=== PATIENT | female | born 1970 | race Hispanic/Latino ===

== ENCOUNTER 2017-10-05 07:50 | Emergency (ER) | payer OTHER ==
[~2017-10-05] VITALS: Ht 157.5 cm; Wt 84.0 kg
[~2017-10-05 07:50] MED LIST: ACETTAB3 OR; ADVAIR DISK1; ADVAIR DISK1 INH; ADVAIR DISK2 IN; ALBUTEROL2.5 MG/3 M IN; AMOXICILLIN/CL875 MG PO; AMOXICILLIN500 MG OR; AUGMENTIN875 MG PO; AUGMENTIN875TAB OR; CEPHALEXIN500 MG PO; CIPRO500 MG OR; CIPROFLOXACN250 MG PO; CIPROFLOXACN500 MG PO; COMBIVENT IN; COMBIVENT RESPIMAT IN; DEPO-PROVER150 MG/ML IM; FIORICET PO; FLAGYL500 MG PO; FLEXERIL OR; FLEXERIL PO; FLEXERIL5 M1 PO; HYDROCHLORO25 MG/TAB PO; HYDROCHLOROTH12.5 MG OR; HYDROCHLOROTH12.5 MG PO; LEVAQUIN750 MG PO; LISINOPRIL20 M1 OR; LISINOPRIL20 MG PO; LISINOPRIL40 MG PO; LORTAB 1010 MG PO; LORTAB 5 OR; LORTAB 5/3255 MG PO; LORTAB 7.5 PO; LORTAB5 OR; LORTAB5 PO; LOSARTAN POT50 MG PO; LYRICA150 MG PO; LYRICA50 MG PO; MEDDOSEPAK PO; MOTRIN800 MG PO; NAPROSYN500 MG PO; NORCO1 TA1 PO; OMEPRAZOLE20 M1 PO; OMEPRAZOLE20 M2 PO; OMEPRAZOLE20 MG OR; OMEPRAZOLE20 MG PO; OMEPRAZOLE40 MG PO; OMNICEF300 MG OR; ONDANSETRON4 MG OR; ORTHO TRI-CY OR; PRILOSEC40 MG PO; PROAIR HFA IN; PYRIDIUM200 MG PO; SINGULAIR PO; SINGULAIR10 MG OR; SINGULAIR10 MG PO; SPRINTEC 2828 DAY PO; TRAMADOL HCL50 MG PO; ULTRAM50 M1 PO; XANAX0.5 MG PO; XANAX1 MG PO; [UNRECOGNIZED DRUG - REMARK]
[2017-10-05 08:30] LABS: HEMATOCRIT 39.8 % (37.0-47.0); HEMOGLOBIN 13.2 g/dl (12.0-16.0); IMMATURE GRANULOCYTES 0.3 % (0.0-1.0); MEAN CELL VOLUME 86.7 fL CALC (80.0-100.0); MEAN CORPUSCULAR HGB 28.8 pG CALC (26.0-32.0); MEAN CORPUSCULAR HGB CONC 33.2 g/L CALC (32.0-36.0); NEUT# 4.86 thou/uL (2.00-7.15); RED BLOOD COUNT 4.59 mill/uL (4.20-5.60); RED CELL DISTRI WIDTH 16.6 % (11.5-15.5)
[2017-10-05 08:31] LABS: URINE BILIRUBIN - DIPSTICK NEGATIVE (NEGATIVE); URINE BLOOD DIPSTICK MODERATE (NEGATIVE); URINE COLOR YELLOW; URINE GLUCOSE - DIPSTICK NEGATIVE (NEGATIVE); URINE KETONE NEGATIVE (NEGATIVE); URINE LEUK ESTERASE NEGATIVE (NEGATIVE); URINE NITRITE - DIPSTICK NEGATIVE (Negative); URINE PROTEIN - DIPSTICK NEGATIVE (NEG-TRACE); URINE SPECIFIC GRAVITY >=1.030; URINE UROBILINOGEN - DIPSTICK 0.2 E.U./dL (0.2)
[2017-10-05 08:32] LABS: URINE CLARITY HAZY
[2017-10-05 08:46] LABS: URINE MUCUS MODERATE hpf (NONE-FEW); URINE SQUAMOUS EPITHELIAL CELL MODERATE EPI/hpf (0-FEW); URINE WBC 0-2 WBC/hpf (0-5)
[2017-10-05] MEDS ORDERED: LOSARTAN POT50 MG PO (09:11)
[2017-10-05] MEDS ORDERED: ATROVENT H17 MCG/ACT IN (09:11)
[2017-10-05] MEDS ORDERED: ADVAIR DISK1 IN (09:12)
[2017-10-05 09:41] LABS: ALBUMIN 3.9 g/dL (3.2-5.0); ALKALINE PHOSPHATASE 55 u/l (38-126); AMYLASE 67 u/l (30-110); ANION GAP 14 (6-22 (CALC)); BILIRUBIN, TOTAL 0.3 mg/dL (0.0-1.4); BUN 10 mg/dL (7-17); BUN/CREATININE RATIO 16 (12-20 (CALC)); CALCIUM 9.4 mg/dL (8.4-10.2); CARBON DIOXIDE 22 mmol/l (22-30); CHLORIDE 107 mmol/l (95-108); CREATININE 0.6 mg/dL (0.5-1.0); GFR > 60 ML/MIN (>=60 (CALC)); GFR FOR AFR.AMER. > 60 ML/MIN (>=60 (CALC)); GLUCOSE 93 mg/dL (65-105); LIPASE 61 u/l (23-300); SGOT/AST 20 u/l (14-36); SGPT/ALT 23 u/l (9-52); SODIUM 139 mmol/l (137-146); TOTAL PROTEIN 6.3 g/dL (6.3-8.2)
[2017-10-05 09:53] LABS: MYOGLOBIN 23 ng/mL (0 - 62)
[2017-10-05] MEDS ORDERED: NEXIUM40 M1 PO (12:44)
[2017-10-05] MEDS ORDERED: ZOFRAN ODT4 MG PO (12:44)
[2017-10-05 12:55] VITALS: BP 126/67
== END 2017-10-05 13:00 | disposition home or self-care (01) | DRG 392 ==
LOC: ED 07:50
PROVIDERS: Emergency Medicine
DX: R10.11 Right upper quadrant pain (principal); R10.31 Right lower quadrant pain; R94.31 Abnormal electrocardiogram [ECG] [EKG]

== ENCOUNTER 2019-07-05 07:11 | Emergency (ER) | payer BC ==
[~2019-07-05] VITALS: Ht 157.5 cm; Wt 83.0 kg
[~2019-07-05 07:11] MED LIST changes: +ADVAIR DISK1 IN; +ATROVENT H17 MCG/ACT IN; +NEXIUM40 M1 PO; +ZOFRAN ODT4 MG PO
[2019-07-05 08:20] LABS: HEMATOCRIT 37.5 % (37.0-47.0); HEMOGLOBIN 12.4 g/dl (12.0-16.0); IMMATURE GRANULOCYTES 0.4 % (0.0-5.0); MEAN CELL VOLUME 89.9 fL CALC (80.0-100.0); MEAN CORPUSCULAR HGB 29.7 pG CALC (26.0-32.0); MEAN CORPUSCULAR HGB CONC 33.1 g/L CALC (32.0-36.0); RED BLOOD COUNT 4.17 mill/uL (4.20-5.60); RED CELL DISTRI WIDTH 15.6 % (11.5-15.5)
[2019-07-05 08:37] LABS: ALBUMIN 4.2 g/dL (3.2-5.0); ALKALINE PHOSPHATASE 52 u/l (38-126); ANION GAP 14 (6-22 (CALC)); BILIRUBIN, TOTAL 0.4 mg/dL (0.0-1.4); BUN 13 mg/dL (7-17); BUN/CREATININE RATIO 25 (12-20 (CALC)); CARBON DIOXIDE 21 mmol/l (22-30); CHLORIDE 108 mmol/l (95-108); CREATININE 0.5 mg/dL (0.5-1.0); GFR > 60 ML/MIN (>=60 (CALC)); GFR FOR AFR.AMER. > 60 ML/MIN (>=60 (CALC)); POTASSIUM 4.7 mmol/l (3.5-5.1); SGOT/AST 19 u/l (14-36); SODIUM 139 mmol/l (137-146); TOTAL PROTEIN 6.8 g/dL (6.3-8.2)
[2019-07-05 10:58] VITALS: BP 156/93
== END 2019-07-05 10:58 | disposition home or self-care (01) | DRG 761 ==
LOC: ED 07:11
PROVIDERS: Family Medicine
DX: N93.9 Abnormal uterine and vaginal bleeding, unspecified (principal); I10 Essential (primary) hypertension

== ENCOUNTER 2021-04-06 00:47 | Emergency (ER) | payer BC ==
[~2021-04-06] VITALS: Ht 157.5 cm; Wt 80.0 kg
[2021-04-06 01:44] LABS: HEMATOCRIT 41.7 % (37.0-47.0); HEMOGLOBIN 13.8 g/dl (12.0-16.0); MEAN CORPUSCULAR HGB 29.1 pG CALC (26.0-32.0); MEAN CORPUSCULAR HGB CONC 33.1 g/dL CAL (32.0-36.0); NEUT# 2.21 thou/uL (2.00-7.15); RED BLOOD COUNT 4.74 mill/uL (4.20-5.60); RED CELL DISTRI WIDTH 13.9 % (11.5-15.5)
[2021-04-06 01:55] LABS: ALBUMIN 4.8 g/dL (3.2-5.0); ALKALINE PHOSPHATASE 60 u/l (38-126); ANION GAP 16 (6-22 (CALC)); BILIRUBIN, TOTAL 0.3 mg/dL (0.0-1.4); BUN 9 mg/dL (7-17); BUN/CREATININE RATIO 13 (12-20 (CALC)); CARBON DIOXIDE 25 mmol/l (22-30); CHLORIDE 104 mmol/l (95-108); CREATININE 0.7 mg/dL (0.5-1.0); GFR > 60 ML/MIN (>=60 (CALC)); GFR FOR AFR.AMER. > 60 ML/MIN (>=60 (CALC)); POTASSIUM 3.8 mmol/l (3.5-5.1); SGOT/AST 27 u/l (14-36); SODIUM 140 mmol/l (137-146); TOTAL PROTEIN 7.7 g/dL (6.3-8.2)
[2021-04-06 02:21] VITALS: BP 140/99
== END 2021-04-06 02:32 | disposition home or self-care (01) | DRG 203 ==
LOC: ED 00:47
PROVIDERS: Emergency Medicine
DX: J45.909 Unspecified asthma, uncomplicated (principal); I10 Essential (primary) hypertension

== ENCOUNTER 2021-04-24 09:07 | Emergency (ER) | payer BC ==
[2021-04-24 10:36] LABS: HEMOGLOBIN 13.9 g/dl (12.0-16.0); IMMATURE GRANULOCYTES 0.1 % (0.0-5.0); MEAN CELL VOLUME 90.1 fL CALC (80.0-100.0); MEAN CORPUSCULAR HGB 29.1 pG CALC (26.0-32.0); MEAN CORPUSCULAR HGB CONC 32.3 g/dL CAL (32.0-36.0); NEUT# 4.82 thou/uL (2.00-7.15); RED BLOOD COUNT 4.77 mill/uL (4.20-5.60); RED CELL DISTRI WIDTH 14.1 % (11.5-15.5)
[2021-04-24 10:47] LABS: ALBUMIN 4.3 g/dL (3.2-5.0); ALKALINE PHOSPHATASE 55 u/l (38-126); BILIRUBIN, TOTAL 0.3 mg/dL (0.0-1.4); BUN 13 mg/dL (7-17); BUN/CREATININE RATIO 17 (12-20 (CALC)); CARBON DIOXIDE 26 mmol/l (22-30); CHLORIDE 104 mmol/l (95-108); CREATININE 0.8 mg/dL (0.5-1.0); GFR > 60 ML/MIN (>=60 (CALC)); GFR FOR AFR.AMER. > 60 ML/MIN (>=60 (CALC)); LIPASE 58 u/l (23-300); SGOT/AST 27 u/l (14-36); SODIUM 139 mmol/l (137-146); TOTAL PROTEIN 7.3 g/dL (6.3-8.2)
[2021-04-24 10:49] LABS: ANION GAP 14 (6-22 (CALC)); POTASSIUM 4.6 mmol/l (3.5-5.1)
[2021-04-24] MEDS ORDERED: MEDDOSEPAK PO (11:42)
[2021-04-24 11:56] VITALS: BP 144/84
== END 2021-04-24 12:05 | disposition home or self-care (01) | DRG 203 ==
LOC: ED 09:07
DX: J45.901 Unspecified asthma with (acute) exacerbation (principal); I10 Essential (primary) hypertension; R76.8 Other specified abnormal immunological findings in serum

== ENCOUNTER 2021-04-24 23:42 | Emergency (ER) | payer BC | END 2021-04-25 00:12 | disposition left against medical advice (07) | DRG 951 | LOC: ED 23:42 → LWOBS 04-25 00:12 | DX: Z53.21 Procedure and treatment not carried out due to patient leaving prior to being seen by health care provider (principal) ==

== ENCOUNTER 2023-10-26 06:27 | Emergency (ER) | payer OTHER ==
[~2023-10-26] VITALS: Ht 157.5 cm; Wt 76.4 kg
[2023-10-26 06:37] VITALS: BP 148/111
[2023-10-26] MEDS ORDERED: methylPREDNISolone SODIUM SUCC 125 MG/2 ML SDV IV ONE (06:45)
[2023-10-26] MEDS ORDERED: IPRATROPIUM-Albuterol 0.5MG-2.5MG/3 ML NEB ONE ×5 (06:45→08:20)
[2023-10-26] MEDS ORDERED: NEBULIZER (06:49)
[2023-10-26 07:00] VITALS: BP 141/103
[2023-10-26 07:01] LABS: BASO% 0.4 % (0-3); EOS% 9.9 % (0-8); HEMATOCRIT 44.3 % (37.0-47.0); HEMOGLOBIN 14.6 g/dl (12.0-16.0); IMMATURE GRANULOCYTES 0.1 % (0.0-5.0); LYMPH% 35.9 % (15-41); MEAN CELL VOLUME 89.9 fL CALC (80.0-100.0); MEAN CORPUSCULAR HGB 29.6 pG CALC (26.0-32.0); MONO% 6.3 % (2-13); NEUT# 3.29 thou/uL (2.00-7.15); NEUT% 47.4 % (42-76); RED BLOOD COUNT 4.93 mill/uL (4.20-5.60); RED CELL DISTRI WIDTH 13.5 % (11.5-15.5)
[2023-10-26 07:23] LABS: ALBUMIN 4.8 g/dL (3.2-5.0); ALKALINE PHOSPHATASE 53 u/l (38-126); ANION GAP 14 (6-22 (CALC)); BILIRUBIN, TOTAL 0.4 mg/dL (0.02-1.3); BUN 15 mg/dL (7-17); BUN/CREATININE RATIO 20 (12-20 (CALC)); CARBON DIOXIDE 23 mmol/l (22-30); CHLORIDE 108 mmol/l (95-108); CREATININE 0.7 mg/dL (0.5-1.0); GFR FOR AFR.AMER. > 60 ML/MIN (>=60 (CALC)); GFR OTHER RACES > 60 ML/MIN (>=60 (CALC)); POTASSIUM 4.1 mmol/l (3.5-5.1); SGOT/AST 33 u/l (14-36); SODIUM 141 mmol/l (137-146); TOTAL PROTEIN 7.5 g/dL (6.3-8.2)
[2023-10-26 08:00] VITALS: BP 152/95
[2023-10-26] MEDS ORDERED: MAGNESIUM SULFATE 50% 1 GM/2 ML IV ONE (08:20)
[2023-10-26] MEDS ORDERED: MAGNESIUM SULFATE HEPTAHYDRATE 50 ML IV ONE (08:30)
[2023-10-26] MEDS ORDERED: SODIUM CHLORIDE 0.9% 1,000 ML IV ONE (08:50)
[2023-10-26 09:00] VITALS: BP 128/91
[2023-10-26] MEDS ORDERED: IPRATROPIU0.5 MG/3 M IN (11:10)
[2023-10-26] MEDS ORDERED: PREDNISONE50 MG PO (11:10)
[2023-10-26 11:33] VITALS: BP 128/91
== END 2023-10-26 11:35 | disposition home or self-care (01) | DRG 203 ==
LOC: ED 06:27
PROVIDERS: Family Medicine
DX: J45.901 Unspecified asthma with (acute) exacerbation (principal); I10 Essential (primary) hypertension
CPT/HCPCS: J3475

== ENCOUNTER 2024-09-03 20:47 | Emergency (ER) | payer OTHER ==
[~2024-09-03] VITALS: Ht 157.5 cm; Wt 77.4 kg
[~2024-09-03 20:47] MED LIST changes: +IPRATROPIU0.5 MG/3 M IN; +NEBULIZER; +PREDNISONE50 MG PO
[2024-09-03] MEDS ORDERED: methylPREDNISolone SODIUM SUCC 125 MG/2 ML SDV IV STA (20:52)
[2024-09-03 20:54] VITALS: BP 134/108
[2024-09-03] MEDS ORDERED: LEVALBUTEROL HCL 1.25 MG/3 ML VIAL NEB ONE (20:55)
[2024-09-03] MEDS ORDERED: EPINEPHrine HCL 1 MG/ML AMP IM ONE (20:55)
[2024-09-03] MEDS ORDERED: IPRATROPIUM BROMIDE 0.5 MG/2.5 ML SOL IN ONE (20:55)
[2024-09-03 21:21] VITALS: BP 170/95
[2024-09-03 21:31] VITALS: BP 140/95
[2024-09-03] MEDS ORDERED: PREDNISONE50 MG PO (21:56)
[2024-09-03] MEDS ORDERED: predniSONE 20 MG/TAB PO ONE (22:00)
[2024-09-03 22:07] VITALS: BP 140/95
== END 2024-09-03 22:08 | disposition home or self-care (01) | DRG 203 ==
LOC: ED 20:47
DX: J45.901 Unspecified asthma with (acute) exacerbation (principal)